=== PATIENT | male | born 1990 | race Caucasian/White ===

== ENCOUNTER 2017-04-22 08:43 | Emergency (ER) | payer OTHER ==
[2017-04-22] MEDS ORDERED: Ondansetron 4 MG/2 ML SDV IVPUSH ONE (09:02)
[2017-04-22] MEDS ORDERED: Sodium Chloride 0.9% 1,000 ML IV ONE (09:02)
[2017-04-22] MEDS ORDERED: Ketorolac 30 MG/ML SDV IVPUSH ONE (09:02)
--- NOTE | 2017-04-22 09:06 | EDM.PDOC ---
ED HPI GENERAL MEDICAL PROBLEM - General Chief Complaint: Abdominal Pain Stated Complaint: RT SIDE PAIN Time Seen by Provider: 04/22/17 09:05 Source of Information: Reports: Patient - History of Present Illness INITIAL COMMENTS - FREE TEXT/NARRATIVE: HISTORY AND PHYSICAL: History of present illness: [Patient presents with right lower quadrant pain radiating to the right flank 8 out of 10 with nausea vomiting began upon awakening this morning with some mild low back pain and sudden onset date out of 10 pain with vomiting No fever chills sweats ] Review of systems: As per history of present illness and below otherwise all systems reviewed and negative. Past medical history: As per history of present illness and as reviewed below otherwise noncontributory. Surgical history: As per history of present illness and as reviewed below otherwise noncontributory. Social history: No reported history of drug or alcohol abuse. Family history: As per history of present illness and as reviewed below otherwise noncontributory. Physical exam: HEENT: Atraumatic, normocephalic, pupils reactive, negative for conjunctival pallor or scleral icterus, mucous membranes moist, throat clear, neck supple, nontender, trachea midline. Lungs: Clear to auscultation, breath sounds equal bilaterally, chest nontender. Heart: S1S2, regular, negative for clicks, rubs, or JVD. Abdomen: Soft, nondistended, nontender. Negative for masses or hepatosplenomegaly. Negative for costovertebral tenderness. Pelvis: Stable nontender. Genitourinary: Deferred. Rectal: Deferred. Extremities: Atraumatic, negative for cords or calf pain. Neurovascular unremarkable. Neuro: Awake, alert, oriented. Cranial nerves II through XII unremarkable. Cerebellum unremarkable. Motor and sensory unremarkable throughout. Exam nonfocal. Diagnostics: [CBC CMP amylase lipase UA ]CT abdomen pelvis with and without contrast Therapeutics: [1 L normal saline bolus Zofran 8 mg IV Toradol 30 mg IV Morphine 4 mg IV ] Effie Zofran Bactrim Strain urine Return to primary care for pathology Impression: [Ab[facility]teral stone UVJ Definitive disposition and diagnosis as appropriate pending reevaluation and review of above. Right Flank Pain Score (Numeric/FACES): 10 - Related Data Allergies Allergy/AdvReac Type Severity Reaction Status Date / Time No Known Allergies Allergy Verified 04/22/17 08:57 Home Meds: Home Meds . [No Known Home Meds] 04/22/17 [History] Past Medical History - Past Health History Medical/Surgical History: Denies Medical/Surgical History - Infectious Disease History Infectious Disease History: Reports: Chicken Pox Social & Family History - Family History Family Medical History: Noncontributory - Tobacco Use Smoking Status *Q: Current Every Day Smoker Years of Tobacco use: 10 Packs/Tins Daily: 1 - Caffeine Use Caffeine Use: Reports: Soda - Recreational Drug Use Recreational Drug Use: No ED ROS GENERAL - Review of Systems Review Of Systems: ROS reveals no pertinent complaints other than HPI. ED EXAM, GENERAL - Physical Exam Exam: See Below Course - Vital Signs Last Recorded V/S: Last Vital Signs Temp 96.5 F 04/22/17 08:54 Pulse 96 04/22/17 08:54 Resp 20 04/22/17 08:54 BP 145/99 H 04/22/17 08:54 Pulse Ox 97 04/22/17 08:54 - Orders/Labs/Meds Orders: Active Orders 24 hr Category Date Time Status CULTURE URINE [RM] Stat Lab 04/22/17 09:33 Received Labs: Laboratory Tests 04/22/17 04/22/17 04/22/17 Range/Units 09:06 09:33 10:04 WBC 8.59 (4.0-11.0) K/uL RBC 5.67 (4.50-5.90) M/uL Hgb 16.7 (13.0-17.0) g/dL Hct 47.4 (38.0-50.0) % MCV 83.6 (80.0-98.0) fL MCH 29.5 (27.0-32.0) pg MCHC 35.2 (31.0-37.0) g/dL RDW Std Deviation 38.5 (28.0-62.0) fl RDW Coeff of Cookie 13 (11.0-15.0) % Plt Count 245 (150-400) K/uL MPV 11.60 (7.40-12.00) fL Neut % (Auto) 60.9 (48.0-80.0) % Lymph % (Auto) 31.3 (16.0-40.0) % [place] % (Auto) 6.3 (0.0-15.0) % Eos % (Auto) 1.2 (0.0-7.0) % Baso % (Auto) 0.3 (0.0-1.5) % Neut # (Auto) 5.2 (1.4-5.7) K/uL Lymph # (Auto) 2.7 H (0.6-2.4) K/uL [place] # (Auto) 0.5 (0.0-0.8) K/uL Eos # (Auto) 0.1 (0.0-0.7) K/uL Baso # (Auto) 0.0 (0.0-0.1) K/uL Nucleated RBC % 0.0 /100WBC Nucleated RBCs # 0 K/uL Sodium 139 (136-146) mmol/L Potassium 4.3 (3.5-5.1) mmol/L Chloride 110 (98-110) mmol/L Carbon Dioxide 22 (21-31) mmol/L BUN 13 (6.0-23.0) mg/dL Creatinine 0.9 (0.6-1.5) mg/dL Est Cr Clr Drug Dosing 119.28 mL/min Estimated GFR (MDRD) > 60.0 ml/min Glucose 113 H (60-110) mg/dL Calcium 9.2 (8.8-10.8) mg/dL Total Bilirubin 0.6 (0.1-1.5) mg/dL AST 18 (5-40) IU/L ALT 43 (8-54) IU/L Alkaline Phosphatase 45 (40-150) Total Protein 7.1 (6.0-8.0) g/dL Albumin 4.2 (3.5-5.0) g/dL Globulin 2.9 (2.0-3.5) g/dL Albumin/Globulin Ratio 1.4 (1.3-2.8) Amylase 49 (10-90) U/L Lipase 27 (7-80) U/L Urine Color YELLOW Urine Appearance CLOUDY Urine pH 6.0 (5.0-8.0) Ur Specific [place] >= 1.030 (1.001-1.035) Urine Protein 100 (NEGATIVE) mg/dL Urine Glucose (UA) NEGATIVE (NEGATIVE) mg/dL Urine Ketones NEGATIVE (NEGATIVE) mg/dL Urine Occult Blood LARGE H (NEGATIVE) Urine Nitrite NEGATIVE (NEGATIVE) Urine Bilirubin NEGATIVE (NEGATIVE) Urine Urobilinogen 0.2 (<2.0) EU/dL Ur Leukocyte Esterase NEGATIVE (NEGATIVE) Urine RBC 90-100 (0-2/HPF) Urine WBC 0-2 (0-5/HPF) Ur Epithelial Cells OCCASIONAL (NONE-FEW) Urine Bacteria FEW (NEGATIVE) Urine Mucus LIGHT (NONE-MOD) Meds: Medications Discontinued Medications Generic Name Dose Route Start Last Admin Trade Name Freq PRN Reason Stop Dose Admin Sodium Chloride 1,000 mls @ 999 mls/hr 04/22/17 09:02 04/22/17 09:19 Normal Saline IV 04/22/17 10:02 999 mls/hr STAT ONE Administration Iopamidol 100 ml 04/22/17 09:26 04/22/17 09:27 Isovue Multipack-370 (76%) IVPUSH 04/22/17 09:27 100 ml ONETIME STA Administration Ketorolac Tromethamine 30 mg 04/22/17 09:02 04/22/17 09:19 Toradol IVPUSH 04/22/17 09:03 30 mg ONETIME ONE Administration Methylprednisolone Sodium Succinate 125 mg 04/22/17 10:32 04/22/17 10:52 Solu-Medrol IVPUSH 04/22/17 10:33 125 mg ONETIME ONE Administration Morphine Sulfate 4 mg 04/22/17 09:40 04/22/17 09:42 Morphine IVPUSH 04/22/17 09:41 4 mg ONETIME ONE Administration Ondansetron HCl 8 mg 04/22/17 09:02 04/22/17 09:19 Zofran IVPUSH 04/22/17 09:03 8 mg ONETIME ONE Administration Tamsulosin HCl 0.4 mg 04/22/17 10:31 04/22/17 10:52 Flomax PO 04/22/17 10:32 0.4 mg ONETIME ONE Administration Departure - Departure Time of Disposition: 11:17 Disposition: Home, Self-Care 01 Condition: Good Clinical Impression: Ureteral stone - Discharge Information Referrals: PCP,None [Primary Care Provider] - Forms: ED Department Discharge Additional Instructions: Work note for 24 hours provided No driving or operating heavy equipment or hazardous activity due to narcotic pain medication No alcohol with medication Strain urine and return stone to primary care doctor jeffery as discussed with the collection equipment provided Return to ER if symptoms persist or worsen or new concerning symptoms such as fever temperature over 100.4, intractable pain, or intractable vomiting The following information is given to patients seen in the emergency department who are being discharged to home. This information is to outline your options for follow-up care. We provide all patients seen in our emergency department with a follow-up referral. The need for follow-up, as well as the timing and circumstances, are variable depending upon the specifics of your emergency department visit. If you don't have a primary care physician on staff, we will provide you with a referral. We always advise you to contact your personal physician following an emergency department visit to inform them of the circumstance of the visit and for follow-up with them and/or the need for any referrals to a consulting specialist. The emergency department will also refer you to a specialist when appropriate. This referral assures that you have the opportunity for follow-up care with a specialist. All of these measure are taken in an effort to provide you with optimal care, which includes your follow-up. Under all circumstances we always encourage you to contact your private physician who remains a resource for coordinating your care. When calling for follow-up care, please make the office aware that this follow-up is from your recent emergency room visit. If for any reason you are refused follow-up, please contact the [facility] emergency department at and asked to speak to the emergency department charge nurse. - My Orders Last 24 Hours: My Active Orders 04/22/17 09:33 CULTURE URINE [RM] Stat - Assessment/Plan Last 24 Hours: My Active Orders 04/22/17 09:33 CULTURE URINE [RM] Stat
[2017-04-22] MEDS ORDERED: Iopamidol 755 MG/ML 500 ML Multipack Bottle IVPUSH STA (09:26)
[2017-04-22] MEDS ORDERED: Morphine 4 MG/ML Syringe IVPUSH ONE (09:40)
[2017-04-22] MEDS ORDERED: Tamsulosin 0.4 MG Cap.ER PO ONE (10:31)
[2017-04-22] MEDS ORDERED: methylPREDNISolone Sodium Succinate 125 MG/2 ML SDV IVPUSH ONE (10:32)
[2017-04-22 10:37] LABS: CHLORIDE,CL 110 mmol/L (98-110); SODIUM,NA 139 mmol/L (136-146)
--- NOTE | 2017-04-22 10:43 | CT ---
CT of the abdomen and pelvis with and without contrast. HISTORY: Pain TECHNIQUE: Axial CT images were obtained of the abdomen and pelvis before and following administratio n of 100 mL of Isovue-370 in the right hand without complication. Coronal and sagittal reconstruction s obtained. FINDINGS: The lung bases are clear, no pleural effusion. The liver, spleen, adrenal glands, and pancreas appear normal. The gallbladder is normal. No bulky re troperitoneal lymphadenopathy or abdominal ascites. There is a 3 mm obstructing stone at the right ureteropelvic junction with mild proximal hydronephro sis. Punctate nonobstructing stone within the lower pole of the left kidney. The large and small bowel are normal in caliber without evidence of obstruction. The appendix is norm al. The urinary bladder is normal. No bulky pelvic lymphadenopathy or free pelvic fluid. No suspicious osseous abnormalities identified. IMPRESSION: 1. There is a 3 mm obstructing stone at the right ureteropelvic junction with mild proximal hydronep hrosis. 2. Tiny nonobstructing left nephrolithiasis.
== END 2017-04-22 11:39 | disposition home or self-care (01) ==
LOC: MW.ED 08:43
DX: N13.2 Hydronephrosis with renal and ureteral calculous obstruction (principal); F17.210 Nicotine dependence, cigarettes, uncomplicated
CPT/HCPCS: 36415; 74178; 80053; 81001; 82150; 83690; 85025; 87086; 96361; 96374; 96375; 99284; A9270; J1885; J2270; J2405; J2930; J7040; Q9967; 99283

== ENCOUNTER 2017-04-24 07:13 | Emergency (ER) | payer OTHER ==
[2017-04-24] MEDS ORDERED: Ketorolac 30 MG/ML SDV IVPUSH ONE (07:26)
[2017-04-24] MEDS ORDERED: Ondansetron 4 MG/2 ML SDV IVPUSH ONE (07:26)
[2017-04-24] MEDS ORDERED: Morphine 2 MG/ML Syringe IVPUSH ONE (07:27)
--- NOTE | 2017-04-24 07:28 | EDM.PDOC ---
ED HPI GENERAL MEDICAL PROBLEM - General Stated Complaint: KIDNEY STONES Time Seen by Provider: 04/24/17 07:22 - History of Present Illness INITIAL COMMENTS - FREE TEXT/NARRATIVE: HISTORY AND PHYSICAL: History of present illness: Patient is 27-year-old white male with history of right-sided urolithiasis was seen several days prior returns with pain nausea and vomiting he is not seeing urology. He denies fever chills or other concern. He was reportedly a 3 mm stone with hydronephrosis that was at the ureteropelvic junction at that time. Review of systems: As per history of present illness and below otherwise all systems reviewed and negative. Past medical history: As per history of present illness and as reviewed below otherwise noncontributory. Surgical history: As per history of present illness and as reviewed below otherwise noncontributory. Social history: No reported history of drug or alcohol abuse. Family history: As per history of present illness and as reviewed below otherwise noncontributory. Physical exam: HEENT: Atraumatic, normocephalic, pupils reactive, negative for conjunctival pallor or scleral icterus, mucous membranes moist, throat clear, neck supple, nontender, trachea midline. Lungs: Clear to auscultation, breath sounds equal bilaterally, chest nontender. Heart: S1S2, regular, negative for clicks, rubs, or JVD. Abdomen: Soft, nondistended, nontender. Negative for masses or hepatosplenomegaly. Right-sided costovertebral tenderness. Pelvis: Stable nontender. Genitourinary: Deferred. Rectal: Deferred. Extremities: Atraumatic, negative for cords or calf pain. Neurovascular unremarkable. Neuro: Awake, alert, oriented. Cranial nerves II through XII unremarkable. Cerebellum unremarkable. Motor and sensory unremarkable throughout. Exam nonfocal. Diagnostics: CBC CMP UA urine culture Therapeutics: Will saline 1 L bolus and Toradol 30 mg IV Dilaudid 1 mg IV Zofran 4 mg IV Flomax 0.4 mg by mouth Impression: #1 renal colic #2 history of right-sided ureteral lithiasis Definitive disposition and diagnosis as appropriate pending reevaluation and review of above. - Related Data Allergies Allergy/AdvReac Type Severity Reaction Status Date / Time No Known Allergies Allergy Verified 04/24/17 07:23 Home Meds: Home Meds Acetaminophen/HYDROcodone [[place] 325-5 MG] 1 tab PO ASDIRECTED 04/24/17 [History ] Ondansetron [Zofran ODT] 4 mg PO ASDIRECTED PRN 04/24/17 [History] Sulfamethoxazole/Trimethoprim [Bactrim Ds Tablet] 1 tab PO ASDIRECTED 04/24/17 [ History] Past Medical History - Past Health History Medical/Surgical History: Denies Medical/Surgical History - Infectious Disease History Infectious Disease History: Reports: Chicken Pox Social & Family History - Family History Family Medical History: Noncontributory - Tobacco Use Smoking Status *Q: Current Every Day Smoker Years of Tobacco use: 10 Packs/Tins Daily: 1 - Caffeine Use Caffeine Use: Reports: Soda - Recreational Drug Use Recreational Drug Use: No ED ROS GENERAL - Review of Systems Review Of Systems: ROS reveals no pertinent complaints other than HPI. ED EXAM, GENERAL - Physical Exam Exam: See Below (See dictation) Course - Vital Signs Last Recorded V/S: Last Vital Signs Temp 36.7 C 04/24/17 07:29 Pulse 81 04/24/17 07:29 Resp 16 04/24/17 07:29 BP 137/83 04/24/17 07:29 Pulse Ox 96 04/24/17 07:29 - Orders/Labs/Meds Orders: Active Orders 24 hr Category Date Time Status HYDROmorphone [Dilaudid] Med 04/24/17 08:51 Once 1 mg IM ONETIME ONE Sodium Chloride 0.9% [Normal Saline] 1,000 ml Med 04/24/17 07:30 Active IV STAT Medication Orders Hydromorphone HCl (Dilaudid) 1 mg IM ONETIME ONE Stop: 04/24/17 08:52 Sodium Chloride (Normal Saline) 1,000 mls @ 999 mls/hr IV STAT MADONNA Last Admin: 04/24/17 07:39 Dose: 999 mls/hr Labs: Laboratory Tests 04/24/17 04/24/17 Range/Units 07:46 07:53 WBC 14.05 H (4.0-11.0) K/uL RBC 4.99 (4.50-5.90) M/uL Hgb 14.5 (13.0-17.0) g/dL Hct 42.6 (38.0-50.0) % MCV 85.4 (80.0-98.0) fL MCH 29.1 (27.0-32.0) pg MCHC 34.0 (31.0-37.0) g/dL RDW Std Deviation 40.4 (28.0-62.0) fl RDW Coeff of Cookie 13 (11.0-15.0) % Plt Count 226 (150-400) K/uL MPV 10.80 (7.40-12.00) fL Neut % (Auto) 62.2 (48.0-80.0) % Lymph % (Auto) 30.0 (16.0-40.0) % [place] % (Auto) 7.0 (0.0-15.0) % Eos % (Auto) 0.5 (0.0-7.0) % Baso % (Auto) 0.3 (0.0-1.5) % Neut # (Auto) 8.7 H (1.4-5.7) K/uL Lymph # (Auto) 4.2 H (0.6-2.4) K/uL [place] # (Auto) 1.0 H (0.0-0.8) K/uL Eos # (Auto) 0.1 (0.0-0.7) K/uL Baso # (Auto) 0.0 (0.0-0.1) K/uL Nucleated RBC % 0.0 /100WBC Nucleated RBCs # 0 K/uL Urine Color YELLOW Urine Appearance CLEAR Urine pH 6.0 (5.0-8.0) Ur Specific [place] 1.010 (1.001-1.035) Urine Protein NEGATIVE (NEGATIVE) mg/dL Urine Glucose (UA) NEGATIVE (NEGATIVE) mg/dL Urine Ketones NEGATIVE (NEGATIVE) mg/dL Urine Occult Blood LARGE H (NEGATIVE) Urine Nitrite NEGATIVE (NEGATIVE) Urine Bilirubin NEGATIVE (NEGATIVE) Urine Urobilinogen 0.2 (<2.0) EU/dL Ur Leukocyte Esterase NEGATIVE (NEGATIVE) Urine RBC 5-8 (0-2/HPF) Urine WBC 0-2 (0-5/HPF) Ur Epithelial Cells RARE (NONE-FEW) Urine Bacteria RARE (NEGATIVE) Meds: Medications Generic Name Dose Route Start Last Admin Trade Name Freq PRN Reason Stop Dose Admin Hydromorphone HCl 1 mg 04/24/17 08:51 Dilaudid IM 04/24/17 08:52 ONETIME ONE Sodium Chloride 1,000 mls @ 999 mls/hr 04/24/17 07:30 04/24/17 07:39 Normal Saline IV 999 mls/hr STAT MADONNA Administration Discontinued Medications Generic Name Dose Route Start Last Admin Trade Name Bekah PRN Reason Stop Dose Admin Ketorolac Tromethamine 30 mg 04/24/17 07:26 04/24/17 07:40 Toradol IVPUSH 04/24/17 07:27 30 mg ONETIME ONE Administration Morphine Sulfate 1 mg 04/24/17 07:27 Morphine IVPUSH 04/24/17 07:28 ONETIME ONE Ondansetron HCl 4 mg 04/24/17 07:26 04/24/17 07:40 Zofran IVPUSH 04/24/17 07:27 4 mg ONETIME ONE Administration Departure - Departure Time of Disposition: 08:51 Disposition: Home, Self-Care 01 Condition: Good Clinical Impression: Kidney stone, Renal colic - Discharge Information Referrals: PCP,None [Primary Care Provider] - Additional Instructions: The following information is given to patients seen in the emergency department who are being discharged to home. This information is to outline your options for follow-up care. We provide all patients seen in our emergency department with a follow-up referral. The need for follow-up, as well as the timing and circumstances, are variable depending upon the specifics of your emergency department visit. If you don't have a primary care physician on staff, we will provide you with a referral. We always advise you to contact your personal physician following an emergency department visit to inform them of the circumstance of the visit and for follow-up with them and/or the need for any referrals to a consulting specialist. The emergency department will also refer you to a specialist when appropriate. This referral assures that you have the opportunity for followup care with a specialist. All of these measure are taken in an effort to provide you with optimal care, which includes your followup. Under all circumstances we always encourage you to contact your private physician who remains a resource for coordinating your care. When calling for followup care, please make the office aware that this follow-up is from your recent emergency room visit. If for any reason you are refused follow-up, please contact the [facility] emergency department at and asked to speak to the emergency department charge nurse. [facility] Specialty Care - Urology [address] [place] [id number] Flomax as prescribed continue pain medicine as directed call schedule routine appointment with urology and private medical doctor return as needed as discussed - My Orders Last 24 Hours: My Active Orders 04/24/17 07:30 Sodium Chloride 0.9% [Normal Saline] 1,000 ml IV STAT 04/24/17 08:51 HYDROmorphone [Dilaudid] 1 mg IM ONETIME ONE - Assessment/Plan Last 24 Hours: My Active Orders 04/24/17 07:30 Sodium Chloride 0.9% [Normal Saline] 1,000 ml IV STAT 04/24/17 08:51 HYDROmorphone [Dilaudid] 1 mg IM ONETIME ONE
[2017-04-24] MEDS ORDERED: Sodium Chloride 0.9% 1,000 ML IV SCH (07:30)
[2017-04-24] MEDS ORDERED: HYDROmorphone 1 MG/ML Syringe IM ONE (08:51)
== END 2017-04-24 09:05 | disposition home or self-care (01) ==
LOC: MW.ED 07:13
DX: N20.2 Calculus of kidney with calculus of ureter (principal); F17.210 Nicotine dependence, cigarettes, uncomplicated
CPT/HCPCS: 36415; 81001; 85025; 96361; 96374; 96375; 99284; J1885; J2405; J7040; 99283